=== PATIENT | female | born 1945 | race Caucasian/White ===

== ENCOUNTER 2023-01-26 17:21 | Emergency (ER) | payer BC, MEDICARE ==
[2023-01-26 17:30] VITALS: TEMP 97.8
--- NOTE | 2023-01-26 17:39 | ED ---
Lower Extremity Injury HPI - General Chief Complaint: Extremity Injury, Lower Stated Complaint: KNEE INJURY Time Seen by Provider: 01/26/23 17:33 Source: patient, EMS, RN notes reviewed, old records reviewed Mode of arrival: EMS Limitations: no limitations - History of Present Illness Initial Comments: This is a 77-year-old female to the emergency department for evaluation. Patient Dese for evaluation of severe knee pain inability to move left knee difficulty with moving left knee patient was bending down the ground to pick something up and felt her knee pop has since been unable to straighten that knee and has significant pain in her left knee. History of any issues history of arthritis multiple joint replacements. No other complaints MD Complaint: knee injury -: hour(s) Injury: Knee: Left Type of Injury: inversion Place: home Severity: moderate Severity scale (1-10): 4 Improves With: nothing Worsens With: nothing Context: other (A shunt bent down to 4) Associated Symptoms: swelling, able to partially bear weight Treatments Prior to Arrival: other (0) - Related Data Home Medications Medication Instructions Recorded Confirmed Co Q-10(Unknown Dose) 1 tab PO DAILY 01/26/23 01/26/23 Ergocalciferol [Vitamin D2 (1250 1,250 mcg PO SA 01/26/23 01/26/23 Mcg = 96902 Iu)] Ferrous Sulfate [Feosol] 325 mg PO BID 01/26/23 01/26/23 Fish Oil(Unknown Dose) 1 cap PO DAILY 01/26/23 01/26/23 Folic Acid(Unknown Dose) 1 tab PO DAILY 01/26/23 01/26/23 Levothyroxine Sodium [Synthroid] 50 mcg PO DAILY 01/26/23 01/26/23 Losartan Potassium 100 mg PO DAILY 01/26/23 01/26/23 Milk Thistle(Unknown Dose) 1 tab PO DAILY 01/26/23 01/26/23 Multivitamins, Thera [Multivitamin 1 tab PO DAILY 01/26/23 01/26/23 (formulary)] Pioglitazone [Actos] 30 mg PO DAILY 01/26/23 01/26/23 Vitamin C(Unknown Dose) 1 tab PO DAILY 01/26/23 01/26/23 glipiZIDE [Glucotrol] 10 mg PO BID 01/26/23 01/26/23 Allergies Allergy/AdvReac Type Severity Reaction Status Date / Time latex Allergy Swelling Verified 01/26/23 19:40 Penicillins Allergy Itching Verified 01/26/23 19:40 perfume Allergy Wheezing Verified 01/26/23 19:40 titanium Allergy Swelling Verified 01/26/23 19:40 tree nut Allergy Unknown Verified 01/26/23 19:40 aspirin AdvReac Nausea Verified 01/26/23 19:40 caffeine AdvReac Hallucinati Verified 01/26/23 19:40 [From Darvon Compound-65] ons propoxyphene AdvReac Hallucinati Verified 01/26/23 19:40 [From Darvon Compound-65] ons Review of Systems ROS Statement: Those systems with pertinent positive or pertinent negative responses have been documented in the HPI. ROS Other: All systems not noted in ROS Statement are negative. Past Medical History Past Medical History: Diabetes Mellitus, Hypertension, Musculoskeletal Disorder, Thyroid Disorder Additional Past Medical History / Comment(s): hypothyroid, arthritis, History of Any Multi-Drug Resistant Organisms: None Reported Past Surgical History: Joint Replacement, Orthopedic Surgery, Tubal Ligation Additional Past Surgical History / Comment(s): right hip replacement 2019, Past Psychological History: No Psychological Hx Reported Smoking Status: Never smoker Past Alcohol Use History: Rare Past Drug Use History: None Reported General Exam Limitations: no limitations General appearance: alert, in no apparent distress Head exam: Present: atraumatic, normocephalic, normal inspection Eye exam: Present: normal appearance, PERRL, EOMI. Absent: scleral icterus, conjunctival injection, periorbital swelling ENT exam: Present: normal exam, mucous membranes moist Neck exam: Present: normal inspection. Absent: tenderness, meningismus, lymphadenopathy Respiratory exam: Present: normal lung sounds bilaterally. Absent: respiratory distress, wheezes, rales, rhonchi, stridor Cardiovascular Exam: Present: regular rate, normal rhythm, normal heart sounds. Absent: systolic murmur, diastolic murmur, rubs, gallop, clicks GI/Abdominal exam: Present: soft, normal bowel sounds. Absent: distended, tenderness, guarding, rebound, rigid Extremities exam: Present: normal inspection, normal capillary refill. Absent: full ROM (Decreased range of motion left knee), tenderness, pedal edema, joint swelling, calf tenderness Back exam: Present: normal inspection Neurological exam: Present: alert, oriented X3, CN II-XII intact Psychiatric exam: Present: normal affect, normal mood Skin exam: Present: warm, dry, intact, normal color. Absent: rash Course Vital Signs 01/26/23 01/26/23 01/26/23 17:24 18:41 20:00 Temperature 97.8 F Pulse Rate 87 84 80 Respiratory 18 18 16 Rate Blood Pressure 141/64 113/53 110/53 O2 Sat by Pulse 98 94 L 95 Oximetry - Reevaluation(s) Reevaluation #1: 01/26/23 21:08 Medical record is reviewed Reevaluation #2: 01/26/23 21:08 Patient informed results and questions answered Reevaluation #3: 01/26/23 21:08 No improvement in symptoms here in the ER Reevaluation #4: 01/26/23 21:08 Was pt. sent in by a medical professional or institution? @ -no Did you speak to anyone other than the patient for history? @ -no Did you review nursing and triage notes? @ -AGREE Were old charts reviewed? @ -NO Differential Diagnosis? @ -NO EKG interpreted by me (3pts min.)? @ -NO X-rays interpreted by me (1pt min.)? @ -YES CT interpreted by me (1pt min.)? @ -NO U/S interpreted by me (1pt. min.)? @ -NO What testing was considered but not performed? (CT, X-rays, U/S, labs)? Why? @ -NO What meds were considered but not given? Why? @ -NO Did you discuss the management of the patient with other professionals? @ -no Did you reconcile home meds? @ -no Was smoking cessation discussed for >3mins.? @ -no Was critical care preformed (if so, how long)? @ -no Were there social determinants of health that impacted care today? How? (Homelessness, low income, unemployed, alcoholism, drug addiction, transportation, low edu. Level, literacy, decrease access to med. care, halfway, rehab)? @ -no Was there de-escalation of care discussed even if they declined? (Discuss DNR or withdrawal of care, Hospice)? @ -no What co-morbidities impacted this encounter? (DM, HTN, Smoking, COPD, CAD, Cancer, CVA, Hep., AIDS, mental health diagnosis, sleep apnea, morbid obesity)? @ -no Was patient admitted / discharged? @ -dc Undiagnosed new problem with uncertain prognosis? @ -no Drug Therapy requiring intensive monitoring for toxicity (Heparin, Nitro, Insulin, Cardizem)? @ -no Were any procedures done? @ -no Diagnosis/symptom? @ -no Acute, or Chronic, or Acute on Chronic? @ -no Uncomplicated (without systemic symptoms) or Complicated (systemic symptoms)? @ -no Side effects of treatment? @ -no Exacerbation, Progression, or Severe Exacerbation] @ -no Poses a threat to life or bodily function? @ -no Reevaluation #5: 01/26/23 21:08 MDM differential left knee pain Osteoarthritis, left knee swelling, left knee edema, bony injury, tendon injury, ligament injury Medical Decision Making - Medical Decision Making 77 female to the emergency department for evaluation. Patient resents today for evaluation regards to left knee pain swelling and decreased range of motion, likely ligamentous injury. X-ray CT are negative here in the ER patient can be discharged home - Lab Data Lab Results 01/26/23 Range/Units 18:17 POC Glucose (mg/dL) 159 H (70-110) mg/dL POC Glu Roll Icer ID Pat Last - Radiology Data Radiology results: report reviewed (X-ray left knee CT of left knee is negative for traumatic injury), image reviewed Disposition Clinical Impression: Left knee pain Disposition: HOME SELF-CARE Instructions (If sedation given, give patient instructions): Knee Sprain (ED), Knee Pain (ED) Is patient prescribed a controlled substance at d/c from ED?: No Referrals: None,Stated [REFERRING] - 1-2 days Time of Disposition: 21:10
[2023-01-26 18:19] LABS: Glucose,Whole Blood 159 mg/dL (70-110)
--- NOTE | 2023-01-26 18:29 | XR ---
EXAMINATION TYPE: XR knee complete LT DATE OF EXAM: 01/26/2023 5:52 PM INDICATION: Patient age:Female; 77 years old; Reason for study: pain; COMPARISON: None. TECHNIQUE: The Left knee(s) was examined in Frontal, lateral and oblique projections. FINDINGS: No evidence of any acute osseous pathology, soft tissue swelling, or joint effusion is no hannah. Tricompartmental osteophyte formation involving the femoral condyles, tibial plateau and patella. Mi ld joint space narrowing. IMPRESSION: 1. No acute osseous pathology. 2. Mild tricompartmental osteoarthritic changes.
[2023-01-26] MEDS ORDERED: ONDANSETRON 4 MG/2 ML VIAL IVP PRN (19:06)
[2023-01-26] MEDS ORDERED: ONDANSETRON 4 MG/2 ML VIAL IVP ONE (19:08)
[2023-01-26] MEDS ORDERED: LORazepam 2 MG/ML INJ IV STA (19:23)
[2023-01-26] MEDS ORDERED: KETOROLAC 15 MG/ML 1 ML VIAL IVP STA (19:23)
[2023-01-26] MEDS ORDERED: MORPHINE SULFATE 4 MG/ML SYRINGE IVP STA (19:23)
--- NOTE | 2023-01-26 21:02 | CT ---
EXAMINATION TYPE: CT knee LT wo con CT DLP: 161.5 mGycm, Automated exposure control for dose reduction was used. DATE OF EXAM: 01/26/2023 8:26 PM COMPARISON: Left knee radiographs 01/26/2023. CLINICAL INDICATION:Female, 77 years old with history of pain; PHH, Fall, Left knee pain. TECHNIQUE: Axial images were obtained of the left knee without the use of IV contrast. Additional co yasmin and sagittal reformatted images and soft tissue and bone window were obtained for review. 3-D r econstruction was created on a separate workstation. FINDINGS: There is no evidence of fracture, subluxation, or dislocation. Tricompartmental osteoarthri tic changes are present. This is most pronounced within the medial joint space. Subchondral sclerosis and marginal osteophytes noted. No evidence for joint effusion. Small popliteal fossa cyst measures 1.9 x 1.2 cm. Evaluation of the tendinous and ligamentous structures is limited due to technique. IMPRESSION: 1. No evidence for fracture or dislocation. Evaluation of the tendinous and ligamentous structures is limited due to CT technique. If clinical symptoms persist consider further evaluation with nonemerge nt knee MRI. 2. Mild tricompartmental osteoarthritis. 3. Small popliteal fossa cyst.
[2023-01-26 21:11] VITALS: BP 106/73; PULSE 77; RESP 18
== END 2023-01-26 21:11 | disposition home or self-care (01) ==
LOC: EC 17:21
DX: M25.562 Pain in left knee (principal); I10 Essential (primary) hypertension; E11.9 Type 2 diabetes mellitus without complications; E03.9 Hypothyroidism, unspecified; Z79.84 Long term (current) use of oral hypoglycemic drugs; Z79.899 Other long term (current) drug therapy; Z79.890 Hormone replacement therapy; Z88.0 Allergy status to penicillin; Z88.6 Allergy status to analgesic agent; Z91.040 Latex allergy status; Z88.8 Allergy status to other drugs, medicaments and biological substances
CPT/HCPCS: 36415; 73562; 73700; 99284; 96374; 96375; J2060; J2405